=== PATIENT | female | born 1995 | race Caucasian/White ===

== ENCOUNTER 2016-10-09 15:07 | Outpatient (CLI) | payer MEDICAID ==
[~2016-10-09] VITALS: Ht 170.2 cm; Wt 73.2 kg
[~2016-10-09 15:07] MED LIST: BIRTH CONTROL PO; BUPR1FIL5 TRANSTRAC; DULO20CA45 PO; DULO60CA7 PO; HYDR1TAB12 PO; HYDR2TAB29 PO; IBUP-1222 PO; LEVO50TA5 PO; NIFE5POW PO; OMEP20TA62 PO; ONDA-39 PO; ONDA4SOL2 PO; OXYC-302 PO; OXYC1TAB8 PO; PHEN16.298 PO; PREN1TAB60 PO; QUET200T4 PO
[2016-10-09 15:12] VITALS: BP 130/87
[2016-10-09] MEDS ORDERED: TERBUTALINE 1 MG/ML, 1ML ONE (15:41)
[2016-10-09] MEDS ORDERED: TERBUTALINE 1 MG/ML, 1ML SQ ONE (16:00)
[2016-10-09 16:07] LABS: DAU SCREEN DISCLAIMER
== END 2016-10-09 19:10 | disposition home or self-care (01) ==
LOC: LDOP 15:07
PROVIDERS: ATTEND Obstetrics & Gynecology Maternal & Fetal Medicine
DX: O26.893 Other specified pregnancy related conditions, third trimester (principal); O99.343 Other mental disorders complicating pregnancy, third trimester; R10.31 Right lower quadrant pain; R10.32 Left lower quadrant pain; F32.9 Major depressive disorder, single episode, unspecified; Z3A.32 32 weeks gestation of pregnancy
CPT/HCPCS: 59025; 80307; 81001; 87086; 87210; 87808; 99211; J3105; G0463

== ENCOUNTER 2016-10-10 10:47 | Observation (INO) | payer MEDICAID | END 2016-10-10 19:56 | disposition home or self-care (01) | LOC: LDOP 10:47 → 2NE 15:57 | PROVIDERS: ADMIT Obstetrics & Gynecology Maternal & Fetal Medicine; ATTEND Obstetrics & Gynecology Maternal & Fetal Medicine | DX: O26.899 Other specified pregnancy related conditions, unspecified trimester (principal); R10.9 Unspecified abdominal pain; Z3A.00 Weeks of gestation of pregnancy not specified | CPT/HCPCS: 59025; G0378 ==

== ENCOUNTER 2018-10-04 11:20 | Outpatient (CLI) | payer BC, MEDICAID ==
[~2018-10-04 11:20] MED LIST changes: -HYDR1TAB12 PO; +HYDR1TAB13 PO; -ONDA-39 PO; +ONDA4TAB12 PO; +PHEN-484 PO; -PHEN16.298 PO; +QUET100T4 PO
[2018-10-04] MEDS ORDERED: IRON SUCROSE COMPLEX 100MG/5ML IV ONE ×2 (11:30→12:30)
[2018-10-04 11:37] VITALS: BP 130/80
[2018-10-04] MEDS ORDERED: PLEASE ENTER HEIGHT AND WEIGHT MC SCH (12:00)
[2018-10-04] MEDS ORDERED: IRON SUCROSE COMPLEX 100 MG in SODIUM CHLORIDE 0.9% 100 ML IV ONE ×2 (12:08→12:09)
[2018-10-04] MEDS ORDERED: IRON SUCROSE COMPLEX 100MG/5ML IV STA (12:18)
[2018-10-04] MEDS ORDERED: IRON SUCROSE COMPLEX 200 MG in SODIUM CHLORIDE 0.9% 100 ML IV ONE (12:30)
== END 2018-10-04 13:15 | disposition home or self-care (01) ==
LOC: LDOP 11:20
PROVIDERS: ATTEND Obstetrics & Gynecology Maternal & Fetal Medicine
DX: Z34.93 Encounter for supervision of normal pregnancy, unspecified, third trimester (principal); Z3A.37 37 weeks gestation of pregnancy
CPT/HCPCS: 59025; 96374; 99201; J1756; G0463